=== PATIENT | female | born 1965 ===

== ENCOUNTER 2017-07-08 06:53 | Emergency (ER) | payer OTHER, BC ==
[2017-07-08 07:08] VITALS: BP 148/88; PULSE 86; RESP 18; TEMP 97.9; O2SAT 100
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
== END 2017-07-08 07:50 | disposition home or self-care (01) ==
LOC: ED 06:53
DX: S46.201A Unspecified injury of muscle, fascia and tendon of other parts of biceps, right arm, initial encounter (principal); V43.52XA Car driver injured in collision with other type car in traffic accident, initial encounter; Y92.410 Unspecified street and highway as the place of occurrence of the external cause

== ENCOUNTER 2018-10-13 08:34 | Outpatient (CLI) | payer BC | END 2018-10-13 08:35 | disposition home or self-care (01) | LOC: RAD 08:34 | DX: Z12.31 Encounter for screening mammogram for malignant neoplasm of breast (principal) ==